=== PATIENT | female | born 1995 | race Two or more races ===

== ENCOUNTER → 2020-09-15 | Outpatient (CLI) | payer OTHER | END | disposition home or self-care (01) | LOC: PRENATAL 14:25 | PROVIDERS: ATTEND Obstetrics & Gynecology Maternal & Fetal Medicine | DX: O35.0XX1 Maternal care for (suspected) central nervous system malformation in fetus, fetus 1 (principal); O35.3XX1 Maternal care for (suspected) damage to fetus from viral disease in mother, fetus 1; O98.512 Other viral diseases complicating pregnancy, second trimester; Z36.89 Encounter for other specified antenatal screening; Z3A.27 27 weeks gestation of pregnancy ==

== ENCOUNTER 2020-11-22 17:57 | Inpatient (IN) | payer OTHER ==
[~2020-11-22] VITALS: Ht 165.1 cm; Wt 59.4 kg
[2020-11-22] MEDS ORDERED: PRENATAL CAPLE1 EAC1 PO (18:49)
[2020-11-22] MEDS ORDERED: IRON325 MG PO (18:49)
== END 2020-11-25 14:26 | disposition home or self-care (01) | DRG 807 ==
LOC: LDR 17:57 → SURG-SUITE 11-23 17:08
PROVIDERS: ADMIT Obstetrics & Gynecology; ATTEND Obstetrics & Gynecology
PROC: 3E0P7VZ Introduction of Hormone into Female Reproductive, Via Natural or Artificial Opening (ICD-10-PCS; 2020-11-22)
PROC: 4A1HXFZ Monitoring of Products of Conception, Cardiac Rhythm, External Approach (ICD-10-PCS; 2020-11-22)
PROC: 10E0XZZ Delivery of Products of Conception, External Approach (ICD-10-PCS; principal; 2020-11-23)
PROC: 0W8NXZZ Division of Female Perineum, External Approach (ICD-10-PCS; 2020-11-23)
PROC: 10907ZC Drainage of Amniotic Fluid, Therapeutic from Products of Conception, Via Natural or Artificial Opening (ICD-10-PCS; 2020-11-23)
PROC: 3E033VJ Introduction of Other Hormone into Peripheral Vein, Percutaneous Approach (ICD-10-PCS; 2020-11-23)
DX: O41.03X0 Oligohydramnios, third trimester, not applicable or unspecified (principal); Z37.0 Single live birth; Z3A.36 36 weeks gestation of pregnancy; Z20.822 Contact with and (suspected) exposure to COVID-19

== ENCOUNTER 2020-12-24 19:52 | Emergency (ER) | payer OTHER ==
[~2020-12-24] VITALS: Ht 165.1 cm; Wt 52.2 kg
[~2020-12-24 19:52] MED LIST: IRON325 MG PO; PRENATAL CAPLE1 EAC1 PO
== END 2020-12-24 23:01 | disposition home or self-care (01) ==
LOC: ER 19:52
DX: R10.11 Right upper quadrant pain (principal)

== ENCOUNTER 2021-08-04 11:13 | Emergency (ER) | payer OTHER ==
[~2021-08-04] VITALS: Ht 165.1 cm; Wt 48.1 kg
[2021-08-04] MEDS ORDERED: PRENATABS RX T1 EACH (11:25)
== END 2021-08-04 14:20 | disposition home or self-care (01) ==
LOC: ER 11:13
DX: U07.1 COVID-19 (principal); R42 Dizziness and giddiness; Z88.6 Allergy status to analgesic agent

== ENCOUNTER 2024-12-13 17:56 | Emergency (ER) | payer OTHER ==
[~2024-12-13] VITALS: Ht 165.1 cm; Wt 49.9 kg
[~2024-12-13 17:56] MED LIST changes: +PRENATABS RX T1 EACH
[2024-12-13] MEDS ORDERED: 0.9 % SODIUM CHLORIDE 1,000 ML IV ONE (19:15)
[2024-12-13] MEDS ORDERED: ACETAMINOPHEN 500 MG GEL..CAP PO ONE (19:15)
[2024-12-13 20:20] LABS: BASO % 0.0 % (0.1-1.2); EOS # 0.00 (0.04-0.54); EOS % 0.0 % (0.7-7.0); LYMPH # 0.40 (1.18-3.74); LYMPH % 32.8 % (19.3-53.1); MEAN PLATELET VOLUME 12.20 fl (9.4-12.4); MONO # 0.12 (0.24-0.82); MONO % 9.8 % (4.7-12.5); NEUT # 0.70 (1.56-6.13); NEUT % 57.4 % (34.0-71.1); RED CELL DISTRIBUTION WIDTH 13.2 % (11.6-14.4)
[2024-12-13 20:39] LABS: ALT/SGPT 29 U/L (12-78); AST/SGOT 62 U/L (15-37); BILIRUBIN TOTAL 0.38 mg/dL (0.3-1.2); BUN CREA RATIO 6 (7.0-25.0); CREATININE SERUM 0.77 mg/dL (0.55-1.02); GFR 89.92; GLOBULINA 3.5 G/DL (2.4-3.5); GLUCOSE FASTING 119 mg/dL (65-100); OSMOLALITY SERUM 274 MOSM/KG (275-295)
[2024-12-13 20:40] LABS: HCG QUANTITATIVE < 1 mUI/mL (1-3)
[2024-12-13 22:10] LABS: COVID-19 AG NEGATIVE (NEGATIVE)
== END 2024-12-13 22:32 | disposition home or self-care (01) ==
LOC: ER 17:57
PROVIDERS: General Practice
DX: A90 Dengue fever [classical dengue] (principal); Z88.6 Allergy status to analgesic agent; Z20.822 Contact with and (suspected) exposure to COVID-19

== ENCOUNTER 2024-12-15 14:26 | Inpatient (IN) | payer OTHER ==
[~2024-12-15] VITALS: Ht 162.6 cm; Wt 49.4 kg
[2024-12-15] MEDS ORDERED: 0.9 % SODIUM CHLORIDE 1,000 ML IV SCH (17:00)
[2024-12-15 19:02] LABS: BASO % 0.8 % (0.1-1.2); EOS # 0.00 (0.04-0.54); EOS % 0.0 % (0.7-7.0); LYMPH # 1.74 (1.18-3.74); LYMPH % 72.2 % (19.3-53.1); MEAN PLATELET VOLUME 11.70 fl (9.4-12.4); MONO # 0.12 (0.24-0.82); MONO % 5.0 % (4.7-12.5); NEUT # 0.50 (1.56-6.13); NEUT % 20.8 % (34.0-71.1); RED CELL DISTRIBUTION WIDTH 13.3 % (11.6-14.4)
[2024-12-15 19:27] LABS: ALT/SGPT 72.0 U/L (12-78); AST/SGOT 142.0 U/L (15-37); BILIRUBIN TOTAL 0.49 mg/dL (0.3-1.2); BUN CREA RATIO 5.0 (7.0-25.0); CREATININE SERUM 0.61 mg/dL (0.55-1.02); GFR 117.65; GLOBULINA 4.1 G/DL (2.4-3.5); GLUCOSE FASTING 97.0 mg/dL (65-100); OSMOLALITY SERUM 280.0 MOSM/KG (275-295)
[2024-12-15 19:34] LABS: INR 1.07
[2024-12-15 19:40] LABS: BASOPHIL MAN 2.0 %; LYMPHOCYTE MAN 66.0 %; MONOCYTE MAN 10.0 %; NEUTROPHILS MAN 21.0 %
[2024-12-15 20:03] LABS: URINE APPEARANCE Clear; URINE BILIRRUBIN Negative (NEGATIVE); URINE BLOOD Negative; URINE COLOR Yellow; URINE GLUCOSE Negative (NEGATIVE); URINE KETONE Negative (NEGATIVE); URINE LEUKOCYTE Small; URINE NITRATE Negative; URINE PROTEIN Negative (NEGATIVE); URINE UROBILINOGEN 1.0 E.U./dl
[2024-12-15 20:08] LABS: URINE BACTERIA 448.8 uL (0.0-1933); URINE EPITHELIAL CELLS 8.1 uL (0.0-38.8); URINE RBC 5.4 uL (0.0-20.8); URINE WBC 114.0 uL (0.0-23.2)
[2024-12-15 20:22] LABS: URINE CAST 0.00 uL (0.0-1.40)
[2024-12-15] MEDS ORDERED: ACETAMINOPHEN 500 MG GEL..CAP PO PRN (21:15)
[2024-12-15] MEDS ORDERED: FAMOTIDINE/PF 20 MG in 0.9 % SODIUM CHLORIDE 8 ML IV PUSH SCH (21:40)
[2024-12-15] MEDS ORDERED: ACETAMINOPHEN 325 MG TABLET PO PRN (21:45)
[2024-12-15] MEDS ORDERED: ONDANSETRON HCL 4 MG in 0.9 % SODIUM CHLORIDE 50 ML IV PRN (21:45)
[2024-12-15 23:54] VITALS: BP 119/82; O2SAT 100
[2024-12-16 01:35] VITALS: BP 102/70; O2SAT 100
[2024-12-16 05:00] LABS: BASO % 0.6 % (0.1-1.2); EOS # 0.01 (0.04-0.54); EOS % 0.3 % (0.7-7.0); LYMPH # 2.34 (1.18-3.74); LYMPH % 72.4 % (19.3-53.1); MEAN PLATELET VOLUME 12.50 fl (9.4-12.4); MONO # 0.23 (0.24-0.82); MONO % 7.1 % (4.7-12.5); NEUT # 0.59 (1.56-6.13); NEUT % 18.4 % (34.0-71.1); RED CELL DISTRIBUTION WIDTH 13.3 % (11.6-14.4)
[2024-12-16 08:32] VITALS: BP 100/66; O2SAT 100
[2024-12-16] MEDS ORDERED: MULTIVIT INFUSN,ADULT 4,VIT K 10 ML VIAL IV SCH (12:00)
[2024-12-16] MEDS ORDERED: Cyanocobalamin/Mecobalamin 1 TAB.SL SL SCH (17:00)
[2024-12-16 17:25] VITALS: BP 101/70
[2024-12-17 03:07] VITALS: BP 100/68; O2SAT 99
[2024-12-17 06:21] LABS: BASO % 0.9 % (0.1-1.2); EOS # 0.01 (0.04-0.54); EOS % 0.4 % (0.7-7.0); LYMPH # 1.58 (1.18-3.74); LYMPH % 67.2 % (19.3-53.1); MEAN PLATELET VOLUME 12.80 fl (9.4-12.4); MONO # 0.28 (0.24-0.82); MONO % 11.9 % (4.7-12.5); NEUT # 0.45 (1.56-6.13); NEUT % 19.2 % (34.0-71.1); RED CELL DISTRIBUTION WIDTH 13.2 % (11.6-14.4)
[2024-12-17 08:13] LABS: EOSINOPHIL MAN 1.0 %; LYMPHOCYTE MAN 69.0 %; MONOCYTE MAN 7.0 %; NEUTROPHILS MAN 17.0 %
[2024-12-17 08:55] VITALS: BP 112/79; O2SAT 100
[2024-12-17 18:36] VITALS: BP 113/71; O2SAT 100
[2024-12-18 04:03] VITALS: BP 89/63; O2SAT 99
[2024-12-18 08:02] LABS: BASO % 0.4 % (0.1-1.2); EOS # 0.01 (0.04-0.54); EOS % 0.4 % (0.7-7.0); LYMPH # 1.31 (1.18-3.74); LYMPH % 47.1 % (19.3-53.1); MEAN PLATELET VOLUME 13.50 fl (9.4-12.4); MONO # 0.50 (0.24-0.82); NEUT # 0.94 (1.56-6.13); NEUT % 33.7 % (34.0-71.1); RED CELL DISTRIBUTION WIDTH 13.2 % (11.6-14.4)
[2024-12-18 09:45] LABS: MONO % 18.0 % (4.7-12.5)
[2024-12-18 10:16] VITALS: BP 105/68; O2SAT 99
[2024-12-18 18:24] VITALS: BP 100/63
[2024-12-19 02:30] VITALS: BP 89/58; O2SAT 99
[2024-12-19 04:58] LABS: BASO % 0.3 % (0.1-1.2); EOS # 0.02 (0.04-0.54); EOS % 0.5 % (0.7-7.0); LYMPH # 1.61 (1.18-3.74); LYMPH % 43.9 % (19.3-53.1); MEAN PLATELET VOLUME 12.40 fl (9.4-12.4); MONO # 0.59 (0.24-0.82); NEUT # 1.42 (1.56-6.13); NEUT % 38.7 % (34.0-71.1); RED CELL DISTRIBUTION WIDTH 13.2 % (11.6-14.4)
[2024-12-19 05:16] LABS: MONO % 16.1 % (4.7-12.5)
[2024-12-19 10:26] VITALS: BP 93/60; O2SAT 97
== END 2024-12-19 15:30 | disposition home or self-care (01) | DRG 866 ==
LOC: ER 14:26 → MEDI 22:01 → MEDJ 12-17 09:01
PROVIDERS: General Practice; Internal Medicine Hematology & Oncology; Student in an Organized Health Care Education/Training Program; ADMIT Internal Medicine; ATTEND Internal Medicine
PROC: BW40ZZZ Ultrasonography of Abdomen (ICD-10-PCS; principal; 2024-12-17)
DX: A90 Dengue fever [classical dengue] (principal); D61.818 Other pancytopenia; D69.6 Thrombocytopenia, unspecified